=== PATIENT | male | born 1980 ===

== ENCOUNTER 2025-01-18 08:58 | Emergency (ER) | payer OTHER ==
[2025-01-18] MEDS: Ketorolac 30 MG/ML SDV IM ONE (09:43)
[2025-01-18] MEDS: Acetaminophen 500 MG Tab PO ONE (09:44)
[2025-01-18 10:00] LABS: BASOPHILS ABSOLUTE AUTO 0.01 K/uL (0.00-0.20); BASOPHILS PERCENT AUTO 0.2 % (0.0-1.0); EOSINOPHILS ABSOLUTE AUTO 0.12 K/uL (0.00-0.45); EOSINOPHILS PERCENT AUTO 1.8 % (0.0-6.0); HEMATOCRIT 41.2 % (42.0-52.0); HEMOGLOBIN 14.6 g/dL (14.0-18.0); IMMATURE GRAN ABSOLUTE AUTO 0.02 K/uL (0.00-0.05); IMMATURE GRAN PERCENT AUTO 0.3 % (0.0-0.4); LYMPHOCYTES ABSOLUTE AUTO 1.41 K/uL (1.00-4.80); LYMPHOCYTES PERCENT AUTO 21.5 % (24.0-44.0); MEAN CORPUSCULAR HEMOGLOBIN 31.8 pg (28.0-32.0); MEAN CORPUSCULAR HGB CONC 35.4 g/dL (32.0-36.0); MEAN CORPUSCULAR VOLUME 89.8 fL (83.0-99.0); MEAN PLATELET VOLUME 10.4 fL (9.4-12.4); MONOCYTES ABSOLUTE AUTO 0.58 K/uL (0.00-0.80); MONOCYTES PERCENT AUTO 8.8 % (0.0-8.0); NEUTROPHILS ABSOLUTE AUTO 4.42 K/uL (1.80-7.70); NEUTROPHILS PERCENT AUTO 67.4 % (41.0-71.0); PLATELET COUNT,PLT 199 K/uL (150-400); RED BLOOD CELL COUNT 4.59 M/uL (4.52-5.90); WHITE BLOOD CELL COUNT,WBC 6.56 K/uL (3.9-11.3)
[2025-01-18] MEDS: Dexamethasone 4 MG Tab PO ONE (10:26)
[2025-01-18 10:27] LABS: A/G RATIO 0.9 (0.9-1.6); ALBUMIN 3.9 g/dL (3.4-5.0); BILIRUBIN TOTAL 0.8 mg/dL (0.2-1.0); C-REACTIVE PROTEIN 1.06 mg/dL (<0.3); CALCIUM 9.1 mg/dL (8.5-10.1); CARBON DIOXIDE,CO2 27.8 mmol/L (21.0-32.0); CREATININE 1.3 mg/dL (0.8-1.3); EST CRCL DRUG DOSING (CG) 86.06 mL/min; PROTEIN TOTAL,TP 8.1 g/dL (6.4-8.2)
== END 2025-01-18 10:49 | disposition home or self-care (01) ==
LOC: MW.ED 08:58
DX: S67.22XA Crushing injury of left hand, initial encounter (principal); M10.9 Gout, unspecified; Z79.899 Other long term (current) drug therapy; W27.8XXA Contact with other nonpowered hand tool, initial encounter; Y93.89 Activity, other specified; Y99.0 Civilian activity done for income or pay
CPT/HCPCS: 36415; 73130; 80053; 85025; 85652; 86140; 96372; 99283; A9270; J1885; J8540

== ENCOUNTER 2025-02-14 14:02 | Emergency (ER) | payer OTHER ==
[2025-02-14] MEDS: Colchicine 0.6 MG Tab PO ONE ×2 (15:37→15:38)
== END 2025-02-14 15:55 | disposition home or self-care (01) ==
LOC: MW.ED 14:02
DX: M10.9 Gout, unspecified (principal)
CPT/HCPCS: 99283; A9270